=== PATIENT | female | born 1955 | race Caucasian/White ===

== ENCOUNTER 2016-11-17 12:27 | Emergency (ER) | payer OTHER ==
[2016-11-17 12:39] VITALS: BP 126/68; PULSE 74; TEMP 97.9; BMI 31.3
--- NOTE | 2016-11-17 12:41 | PDOC ---
History of Present Illness - General Chief Complaint: Pain, Acute Stated Complaint: RIGHT KNEE PAIN Time Seen by Provider: 11/17/16 12:30 - History of Present Illness Initial Comments: 11/17/16 13:55 Patient is a 61-year-old female past medical history of osteoarthritis, back surgery who presents to the ED today complaining of right knee pain. Patient states that yesterday while standing up from a chair she felt her right knee block. The symptoms resolved within a few minutes. Patient had full range of motion at that time. She was able to sleep comfortably last night. This morning , patient states that she is putting her dog in the car when she bends over and feels similar symptoms. She feels her right knee locked in place. States she can 't move it. She presents via ambulance for evaluation. Admits to numbness and tingling in her hip. Patient takes meloxicam daily for her arthritis and back pain. She took her meloxicam today. Denies fall or weakness. Denies chest pain, palpitations, edema, shortness of breath, dyspnea, nausea, vomiting, diarrhea. Past History - Past Medical History Allergies/Adverse Reactions: Allergies Allergy/AdvReac Type Severity Reaction Status Date / Time codeine Allergy Verified 11/17/16 12:32 Home Medications: Ambulatory Orders Meloxicam [Mobic (Nf) -] 15 mg PO DAILY 11/17/16 Hypercholesterolemia: Yes - Psycho/Social/Smoking Cessation Hx Anxiety: No Suicidal Ideation: No Smoking History: Never smoked Hx Alcohol Use: Yes Drug/Substance Use Hx: No Substance Use Type: Alcohol *Physical Exam - Vital Signs Last Vital Signs Temp Pulse Resp BP Pulse Ox 97.9 F 74 16 126/68 100 11/17/16 12:28 11/17/16 12:28 11/17/16 12:28 11/17/16 12:28 11/17/16 12:28 - Physical Exam Comments: 11/17/16 14:12 GENERAL: Well developed, well nourished. Awake and alert. No acute distress. HEENT: Normocephalic, atraumatic. PERRLA, EOMI. No conjunctival pallor. Sclera are non- icteric. Moist mucous membranes. Oropharynx is clear. NECK: Supple. Full ROM. No JVD. Carotid pulses 2+ and symmetric, without bruits. No thyromegaly. No lymphadenopathy. CARDIOVASCULAR: Regular rate and rhythm. No murmurs, rubs, or gallops. Distal pulses are 2+ and symmetric. PULMONARY: No evidence of respiratory distress. Lungs clear to auscultation bilaterally. No wheezing, rales or rhonchi. MUSCULOSKELETAL Soft tissue swelling of the R knee. Pt can flex the knee to 5 degrees. Pain with flexion past that point. TTP of the L lateral knee space along the joint line. Pt does not tolerate Feliciano's testing. (-) anterior, posterior draw. (-) Valgus/Varus testing. No bony deformities or tenderness. No CVA tenderness. EXTREMITIES: No cyanosis. No clubbing. No edema. No calf tenderness. SKIN: Warm and dry. Normal capillary refill. No rashes. No jaundice. NEUROLOGICAL: Alert, awake, appropriate. Cranial nerves 2-12 intact. No deficits to light touch and temperature in face, upper extremities and lower extremities. No motor deficits in the in face, upper extremities and lower extremities. Normoreflexic in the upper and lower extremities. Normal speech. Toes are down- going bilaterally. Gait is normal without ataxia. PSYCHIATRIC: Cooperative. Good eye contact. Appropriate mood and affect. Medical Decision Making - Medical Decision Making 11/17/16 11:50 Patient is a 61-year-old female past medical history of osteoarthritis, back surgery presenting to the ED today with right knee pain after bending over. Patient states that his gotten worse after her initial insult of hyperextending her knee the day before. Her exam shows no ACL or MCL injury based on special testing. Given history and patient's unwillingness to straighten leg, concerning for possible meniscus injury. We will obtain x-ray at this time. We' ll give Toradol for pain. We will consult with orthopedics. Reevaluate 11/17/16 12:30 Ortho KAMLESH Sheets consults with the patient. He is familiar with her case as he has seen her as an outpatient in the past. He recommends an intra- articular injection into the knee joint at this time. He states that he will perform the injection here in the ER now. The area is sterilized with Betadine and alcohol prep wipes. 9 mL of 1% lidocaine is drawn with 80 mg of Depakote low prednisone in a 10 mL syringe. The needle is then placed into the lateral knee joint space and the injection is given. Patient tolerates the procedure well. PMS is intact pre-and post injection. 11/17/16 13:15 X-rays of the knee are negative for fracture at this time. The joint space is appropriately aligned. We'll place Alexy wrap for comfort at this time. Patient states that bearing weight is uncomfortable. We'll give instructions for crutches. We will discharge home at this time. Patient has scheduled follow-up with KAMLESH Sheets for Sunday11/22/16. Told patient to keep this appointment. *DC/Admit/Observation/Transfer Diagnosis at time of Disposition: Knee pain Qualifiers: Laterality: right Chronicity: acute Qualified Code(s): M25.561 - Pain in right knee - Discharge Dispostion Disposition: HOME Condition at time of disposition: Improved Admit: No - Referrals Referrals: Homar Benito MD [Staff Physician] - - Patient Instructions Printed Discharge Instructions: DI for Knee Pain, Joint Injection Additional Instructions: Camilla Thank you for coming in to the ER today We anticipate that this injection will make your knee feel better Please monitor for increased pain, swelling, red skin, warm knee If you have any concerns or complaints, please come in to the ER for evaluation Please follow up with Ortho as an outpatient
[2016-11-17] MEDS ORDERED: KETOROLAC TROMETHAMINE 30 MG/1 ML VIAL IM ONE (12:50)
[2016-11-17] MEDS ORDERED: methylPREDNISolone ACET (DEPO) 80 MG/1 ML VIAL IAR ONE (13:00)
[2016-11-17] MEDS ORDERED: LIDOCAINE HCL 1%, 10 MG/ML (20ML VIAL) ONE (13:01)
--- NOTE | 2016-11-17 13:07 | PDOC ---
*Physical Exam - Vital Signs Last Vital Signs Temp Pulse Resp BP Pulse Ox 97.9 F 74 16 126/68 100 11/17/16 12:28 11/17/16 12:28 11/17/16 12:28 11/17/16 12:28 11/17/16 12:28 Medical Decision Making - Medical Decision Making 11/17/16 13:03 THis is a 61 yo F presenting to the ER via EMS with a complaint of knee pain Pt seen in the ER by PA covering Dr Short Steroid injection performed Pt discharged to home Follow up with Ortho Pt seen by Midlevel Provider under my direct supervision Pt interviewed and examined Ancillary studies reviewed I agree with plan as outlined by Midlevel Provider *DC/Admit/Observation/Transfer Diagnosis at time of Disposition: Knee pain - Discharge Dispostion Condition at time of disposition: Improved Admit: No - Referrals Referrals: Vincent Short [Non Staff, Medical] - - Patient Instructions Printed Discharge Instructions: DI for Knee Pain, Joint Injection Additional Instructions: Camilla Thank you for coming in to the ER today We anticipate that this injection will make your knee feel better Please monitor for increased pain, swelling, red skin, warm knee If you have any concerns or complaints, please come in to the ER for evaluation Please follow up with Ortho as an outpatient
[2016-11-17] MEDS ORDERED: KETOROLAC TROMETHAMINE 30 MG/1 ML VIAL ONE (13:34)
== END 2016-11-17 14:24 | disposition home or self-care (01) ==
LOC: FER 12:27
PROC: 3E0333Z Introduction of Anti-inflammatory into Peripheral Vein, Percutaneous Approach (ICD-10-PCS; principal; 2016-11-17)
PROC: 3E033GC Introduction of Other Therapeutic Substance into Peripheral Vein, Percutaneous Approach (ICD-10-PCS; 2016-11-17)
DX: M25.561 Pain in right knee (principal); M19.90 Unspecified osteoarthritis, unspecified site; W18.39XA Other fall on same level, initial encounter; Y93.89 Activity, other specified; Y92.410 Unspecified street and highway as the place of occurrence of the external cause; E78.00 Pure hypercholesterolemia, unspecified
CPT/HCPCS: 73562-TC-RT; 99282-25